=== PATIENT | male | born 1970 | race Caucasian/White ===

== ENCOUNTER 2024-07-29 12:51 | Emergency (ER) | payer OTHER, SELFPAY ==
[2024-07-29 13:01] VITALS: BP 130/75; PULSE 81; RESP 17; TEMP 36.4; O2SAT 96; BMI 33.6
--- NOTE | 2024-07-29 13:27 | ED_ITS ---
HPI - Head Injury <Yoon Echavarria PA-C - Last Filed: 07/29/24 15:24> General Chief complaint: Head Injury Stated complaint: Head Injury Time Seen by Provider: 07/29/24 13:08 Source: patient Mode of arrival: Family Vehicle History of Present Illness HPI Narrative: Mr. Ness is a pleasant 53-year-old gentleman with no reported past medical history who presents to the emergency department for a head injury that occurred prior to arrival. Patient states [place] and was at the airport sitting in a chair, he pushed the chair backwards to get up and he hit the back of his head on something on the wall. After hitting his head, he developed pain on the posterior scalp and some neck pain that is worse when turning his head to the right side. He took an Uber from the airport and came i mmediately to the emergency department. States that he has very mild pain on the back of his head but more significant pain on the right side of his neck region when he turns the head to the right. He is having some nausea. He denies loss of consciousness, vomiting, numbness tingling or weakness, dizziness, lightheadedness, visual disturbance. He took no medications prior to arrival. He is ambulatory. No blood thinners. Related Data Previous Rx's Medication Instructions Recorded lidocaine 5 % topical patch 1 patch topical DAILY #15 ea 07/29/24 (Lidoderm) methocarbamol 500 mg tablet 500 mg PO TID PRN muscle spasm #15 07/29/24 tabs ondansetron 4 mg disintegrating 4 mg PO Q8H PRN nausea and 07/29/24 tablet vomiting #10 tabs Allergies Allergy/AdvReac Type Severity Reaction Status Date / Time Penicillins Allergy Verified 07/29/24 13:05 Review of Systems <Yoon Echavarria PA-C - Last Filed: 07/29/24 15:24> Review of Systems ROS Unobtainable: All systems reviewed & are unremarkable except as noted in HPI and below Patient History <Yoon Echavarria PA-C - Last Filed: 07/29/24 15:24> Social History Smoking Status: Never smoker Smoking Status: Never smoker Exam <Yoon Echavarria PA-C - Last Filed: 07/29/24 15:24> Narrative Exam Narrative: GENERAL: 53 year old patient appears stated age. Well-developed patient, in no acute distress, sitting in ED chair, walked into room independently. HEAD: Atraumatic. Normocephalic. No tenderness on posterior scalp, palpable skull fractures, skin changes lesions abrasions or lacerations. EYES: PERRL. Extraocular motions intact. No scleral icterus. No injection or drainage. ENT: Normal TMs bilaterally, no hemotympanum.Nose without bleeding, purulent drainage. Throat without erythema, tonsillar hypertrophy or exudate. Airway patent. NECK: Trachea midline. No midline cervical tenderness to palpation. Patient has subjective pain in the right paraspinal region when rotating his head to the right. No pain with range of motion to the left. Subjective tenderness to palpation in the superior trapezius region bilaterally. CARDIOVASCULAR: Regular rate and rhythm. RESPIRATORY: Nonlabored respirations. Speaking in clear, full sentences. Clear to auscultation. EXTREMITIES: No edema or joint tenderness. BACK: No midline spinal tenderness. NEURO: AOx3. Clear speech. Moves all 4 extremities appropriately. 5/5 bilateral upper and lower extremity flexion-extension strength and bioengineer strength . Sensation intact to light touch throughout the face and extremities. No facial asymmetry. Steady gait. SKIN: No rash or erythema of visible areas Initial Vital Signs Initial Vital Signs: Vital Signs Temperature 97.6 F 07/29/24 13:01 Pulse Rate 81 07/29/24 13:01 Respiratory Rate 17 07/29/24 13:01 Blood Pressure 130/75 07/29/24 13:01 Pulse Oximetry 96 07/29/24 13:01 Oxygen Delivery Method Room Air 07/29/24 13:01 <Ibeth Castellanos MD - Last Filed: 07/29/24 19:58> Initial Vital Signs Initial Vital Signs: Vital Signs Temperature 97.6 F 07/29/24 13:01 Pulse Rate 81 07/29/24 13:01 Respiratory Rate 17 07/29/24 13:01 Blood Pressure 130/75 07/29/24 13:01 Pulse Oximetry 96 07/29/24 13:01 Oxygen Delivery Method Room Air 07/29/24 13:01 Scores <Yoon Echavarria PA-C - Last Filed: 07/29/24 15:24> U[address] CT Head Rule Age <16 years old: No Patient on blood thinners: No Seizure after injury: No Exclusion: Patient NOT Excluded, Proceed to next steps GCS < 15 at 2 hr post trauma: No Suspected open or depressed skull fracture: No Any sign of basilar skull fracture (hemotympanum, raccoon eyes, West's sign, CSF moses-/rhinorrhea): No Two or more episodes of vomiting: No Age greater or equal to 65 years: No Retrograde amnesia to the event greater or equal to 30 min: No Dangerous Mechanism (pedestrian vs. mv, occupant ejected from mv, fall from >3 ft or > 5 stairs): No Recommendation: CT unnecessary Nexus Score for C-Spine Focal Neurologic deficit present: No Midline spinal tenderness present: No Altered level of conciousness present: No Intoxication present: No Distracting Injury Present: No Nexus Criteria for C-spine: 0 <Ibeth Castellanos MD - Last Filed: 07/29/24 19:58> Upson CT Head Rule Exclusion: Patient NOT Excluded, Proceed to next steps Recommendation: CT unnecessary Nexus Score for C-Spine Nexus Criteria for C-spine: 0 Course <Yoon Echavarria PA-C - Last Filed: 07/29/24 15:24> Orders Ordered: Discontinued Medications Acetaminophen (Acetaminophen 325 Mg Tablet) 650 mg PO NOW ONE Stop: 07/29/24 13:27 Last Admin: 07/29/24 13:38 Dose: 650 mg Documented By: IRIS Lidocaine (Lidocaine 5% Patch) 1 each TOP NOW ONE Stop: 07/29/24 13:27 Last Admin: 07/29/24 13:38 Dose: 1 each Documented By: IRIS Ondansetron HCl (Ondansetron 4 Mg Odt) 4 mg SL NOW ONE Stop: 07/29/24 13:27 Last Admin: 07/29/24 13:38 Dose: 4 mg Documented By: IRIS Vital Signs Vital signs: Vital Signs - 8 hr 07/29/24 13:01 07/29/24 14:20 Temperature 97.6 F Pulse Rate 81 72 Respiratory Rate 17 16 Blood Pressure 130/75 132/84 Pulse Oximetry 96 95 Oxygen Delivery Method Room Air Room Air <Ibeth Castellanos MD - Last Filed: 07/29/24 19:58> Orders Ordered: Discontinued Medications Acetaminophen (Acetaminophen 325 Mg Tablet) 650 mg PO NOW ONE Stop: 07/29/24 13:27 Last Admin: 07/29/24 13:38 Dose: 650 mg Documented By: IRIS Lidocaine (Lidocaine 5% Patch) 1 each TOP NOW ONE Stop: 07/29/24 13:27 Last Admin: 07/29/24 13:38 Dose: 1 each Documented By: IRIS Ondansetron HCl (Ondansetron 4 Mg Odt) 4 mg SL NOW ONE Stop: 07/29/24 13:27 Last Admin: 07/29/24 13:38 Dose: 4 mg Documented By: IRIS Vital Signs Vital signs: Vital Signs - 8 hr 07/29/24 13:01 07/29/24 14:20 Temperature 97.6 F Pulse Rate 81 72 Respiratory Rate 17 16 Blood Pressure 130/75 132/84 Pulse Oximetry 96 95 Oxygen Delivery Method Room Air Room Air MDM - Head Injury <Yoon Echavarria PA-C - Last Filed: 07/29/24 15:24> Medical Records Medical records narrative: No medical records available for review. [facility] Narrative Medical decision making narrative: 53-year-old gentleman with no reported past medical history who presents to the emergency department for a head injury that occurred prior to arrival. Differential diagnosis includes but is not limited to cervical strain, cervical whiplash, scalp contusion, closed head injury, concussion, etc. On exam the patient is in no acute distress, nontoxic-appearing, all vital signs within normal limits. He has no palpable skull fracture, no wounds on the back of the head, no focal neurologic deficits. He has no midline cervical tenderness. Upson head CT negative and nexus score for C-spine negative. Suspect likely cervical strain due to probable flexion injury of the neck. we will treat pain with Lidoderm, acetaminophen, Zofran. At this time and I do not suspect the patient needs emergent CT imaging, we will treat with supportive care, Robaxin, Lidoderm, acetaminophen, Zofran. We will treat with 1st dose of acetaminophen, Lidoderm, Zofran in the emergency department. Patient feeling better after ED treatment, states Lidoderm is effective. I did discuss very strict ED return precautions with the patient and he verbalized understanding. Medications sent to pharmacy of choice. Advised follow up with PCP, he is stable for discharge home. Discharge Plan Departure Patient Disposition: Home Clinical Impression: Closed head injury Qualifiers: Encounter type: initial encounter Qualified Code(s): S09.90XA - Unspecified injury of head, initial encounter Cervical muscle strain Qualifiers: Encounter type: initial encounter Qualified Code(s): S16.1XXA - Strain of muscle, fascia and tendon at neck level, initial encounter Instructions: DI for Cervical Muscle Strain, DI for Closed Head Injury Activity Restrictions/Additional Instructions: Dear Mr. Ness, Thank you for coming to the emergency department. I am sorry that you hit the back of your head while at the airport. Today we are treating you for a closed- head injury and cervical muscle strain. Please rest, use the prescribed numbing patches, muscle relaxers and nausea medicine if needed. You may also safely take Tylenol and/or Motrin with these medications. Please be aware that methocarbamol as a muscle relaxer that may make you drowsy so it is very important not to take this medication while drinking alcohol, driving a car or operating heavy machinery. You may have a slight concussion and will likely have a mild headache and some nausea for a few days. Avoiding highly stimulating activities and even TV or computers may be helpful in minimizing your symptoms. Avoid activities that will put you at risk for another head injury for at least a week. You can take tylenol or motrin for headache or the prescription provided for nausea/vomiting. Return for worsening or persistent symptoms Please return to the emergency department if you develop any new or worsening symptoms, severe pain, numbness tingling or weakness in your extremities, facial asymmetry, confusion, or other concerns. Please follow up with your primary care doctor within the next 2-3 days for ER follow-up. (If you do not have a PCP you can call [phone]. to schedule an appointment with an [facility] Primary Care Provider) IF YOU DEVELOP ANY NEW OR WORSENING SYMPTOMS, RETURN TO THE ER! Please read the attached instructions, they highlight more specific treatments and interventions for you at home. Thank you for letting me participate in your care, Yoon Echavarria PA-C Prescriptions: New lidocaine [Lidoderm] 5 % adhesive patch,medicated 1 patch topical DAILY Qty: 15 0RF Rx Instructions: leave on most painful area for up to 12 hrs methocarbamol 500 mg tablet 500 mg PO TID PRN (Reason: muscle spasm) Qty: 15 0RF ondansetron 4 mg tablet,disintegrating 4 mg PO Q8H PRN (Reason: nausea and vomiting) Qty: 10 0RF Referrals: Hailey Conway MD [Primary Care Provider] - Stand Alone Forms: Patient Portal/API/Survey ED Sign-out <Ibeth Castellanos MD - Last Filed: 07/29/24 19:58> Cosign ED Attending Cosignature Attestation: I was immediately available in the department for consultation throughout this patient's visit. Ibeth Castellanos MD
[2024-07-29] MEDS: LIDOCAINE 5% PATCH 1 EACH TOP (13:38)
[2024-07-29] MEDS: ONDANSETRON 4 MG ODT SL (13:38)
[2024-07-29] MEDS: ACETAMINOPHEN 325 MG TABLET 650 MG PO (13:38)
[2024-07-29 14:20] VITALS: BP 132/84; PULSE 72; RESP 16; O2SAT 95
== END 2024-07-29 14:25 | disposition home or self-care (01) ==
PROVIDERS: Emergency Provider Physician Assistant; PCP Internal Medicine
DX: S09.90XA Unspecified injury of head, initial encounter (principal); S16.1XXA Strain of muscle, fascia and tendon at neck level, initial encounter; W22.8XXA Striking against or struck by other objects, initial encounter
CPT/HCPCS: 99283